=== PATIENT | female | born 1995 | race Caucasian/White ===

== ENCOUNTER 2019-03-14 09:20 | Emergency (ER) | payer BC ==
[2019-03-14] MEDS ORDERED: SODIUM CHLORIDE 0.9% 1,000 ML IV STA (09:41)
[2019-03-14] MEDS ORDERED: KETOROLAC 30 MG/ML 1 ML VIAL IVP STA (10:29)
--- NOTE | 2019-03-14 10:35 | ED ---
Abdominal Pain HPI - General Chief Complaint: Abdominal Pain Stated Complaint: back/flank pain Time Seen by Provider: 03/14/19 09:41 Source: patient, RN notes reviewed, old records reviewed Mode of arrival: ambulatory Limitations: no limitations - History of Present Illness Initial Comments: Patient is a 23-year-old female who presents emergency Department today with complaints of bilateral flank pain. 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 She had worsening pain last night and left her shift early. Patient reports that she has started with diffuse abdominal cramping and diarrhea symptoms on of last week. She reports that those symptoms seemed to resolve over the weekend but she has had a poor appetite. She states that she went to an urgent care on and at that time she had an abnormal urine specimen with bilirubin, ketones red blood cells. Patient states that she did not have any urinary symptoms at that time therefore is not placed on any antibiotics. They did complete a urine culture but this is still currently pending. Patient states that she has had no recorded fevers or chi lls. She states that she now is having worsening bilateral flank pain. She denies any vomiting. Denies any significant past medical history. Patient has been taken Motrin for the pain. - Related Data Home Medications Medication Instructions Recorded Confirmed Cholecalciferol [Vitamin D3 (25 1,000 unit PO DAILY 03/14/19 03/14/19 Mcg = 1000 Iu)] Ibuprofen [Motrin Ib] 400 mg PO Q6H PRN 03/14/19 03/14/19 Multivitamins, Thera [Multivitamin 1 tab PO DAILY 03/14/19 03/14/19 (formulary)] Norgestimate-Ethinyl Estradiol 1 tab PO HS 03/14/19 03/14/19 [Ortho Tri-Cyclen 28 Tablet] Vitamin C/Biotin [Hair, Skin and 1 tab PO DAILY 03/14/19 03/14/19 Nails] Previous Rx's Medication Instructions Recorded Ketorolac [Toradol] 10 mg PO Q6HR #15 tab 03/14/19 Nitrofurantoin Monohyd/M-Cryst 100 mg PO Q12HR #14 cap 03/14/19 [Macrobid] Allergies Allergy/AdvReac Type Severity Reaction Status Date / Time No Known Allergies Allergy Verified 03/14/19 09:50 Review of Systems ROS Statement: Those systems with pertinent positive or pertinent negative responses have been documented in the HPI. ROS Other: All systems not noted in ROS Statement are negative. Past Medical History Past Medical History: No Reported History History of Any Multi-Drug Resistant Organisms: None Reported Additional Past Surgical History / Comment(s): eye surgery Past Psychological History: No Psychological Hx Reported Smoking Status: Never smoker Past Alcohol Use History: None Reported Past Drug Use History: Unable to Obtain General Exam - General Exam Comments Initial Comments: This is a 23-year-old female. Alert and oriented 3. No significant distress. Limitations: no limitations General appearance: alert, in no apparent distress Head exam: Present: atraumatic, normocephalic, normal inspection Eye exam: Present: normal appearance, PERRL, EOMI. Absent: scleral icterus, conjunctival injection, periorbital swelling ENT exam: Present: normal exam, mucous membranes moist Neck exam: Present: normal inspection. Absent: tenderness, meningismus, lymphadenopathy Respiratory exam: Present: normal lung sounds bilaterally. Absent: respiratory distress, wheezes, rales, rhonchi, stridor Cardiovascular Exam: Present: regular rate, normal rhythm, normal heart sounds. Absent: systolic murmur, diastolic murmur, rubs, gallop, clicks GI/Abdominal exam: Present: soft, normal bowel sounds. Absent: distended, tenderness, guarding, rebound, rigid Back exam: Present: normal inspection Neurological exam: Present: alert, oriented X3, CN II-XII intact Psychiatric exam: Present: normal affect, normal mood Skin exam: Present: warm, dry, intact, normal color. Absent: rash Course Vital Signs 03/14/19 09:32 Temperature 98.7 F Pulse Rate 81 Respiratory 16 Rate Blood Pressure 135/86 O2 Sat by Pulse 99 Oximetry Medical Decision Making - Medical Decision Making is a well-appearing 23-year-old female presents emergency department today with few days of diarrhea, and diffuse abdominal pain, but the weekend. She states that she started to develop some bilateral flank pain. She is similar to care and had a abnormal UA at that time but was not started on antibiotics. This patient's blood work and vital signs are stable. Urinalysis shows some trace hematuria. They do related to possible history of kidney stones in the family and I discussed further evaluation of possible CT. They proceeded with CT and pelvis. His evidence of diverticulosis without diverticulitis. No signs of obstructing kidney stone. At this time we'll do a urine culture. I discussed putting the Patient on Macrobid is best worked well for her for previous UTIs in the past she does have some bacteria noted her urine. She denies any pelvic pain or vaginal discharge. I discussed the Patient follow-up problem with her primary care doctor. Discharge Patient with prescription for Toradol and Macrobid. QUESTIONS WERE ANSWERED. - Lab Data Result diagrams: 03/14/19 11:10 03/14/19 11:10 Lab Results 03/14/19 03/14/19 03/14/19 Range/Units 11:10 11:10 11:10 WBC 4.8 (3.8-10.6) k/uL RBC 4.37 (3.80-5.40) m/uL Hgb 13.4 (11.4-16.0) gm/dL Hct 39.3 (34.0-46.0) % MCV 90.0 (80.0-100.0) fL MCH 30.6 (25.0-35.0) pg MCHC 34.0 (31.0-37.0) g/dL RDW 12.5 (11.5-15.5) % Plt Count 258 (150-450) k/uL Neutrophils % 54 % Lymphocytes % 30 % Monocytes % 11 % Eosinophils % 1 % Basophils % 1 % Neutrophils # 2.6 (1.3-7.7) k/uL Lymphocytes # 1.4 (1.0-4.8) k/uL Monocytes # 0.5 (0-1.0) k/uL Eosinophils # 0.1 (0-0.7) k/uL Basophils # 0.0 (0-0.2) k/uL Sodium 140 (137-145) mmol/L Potassium 3.5 (3.5-5.1) mmol/L Chloride 99 (98-107) mmol/L Carbon Dioxide 26 (22-30) mmol/L Anion Gap 15 mmol/L BUN 9 (7-17) mg/dL Creatinine 0.76 (0.52-1.04) mg/dL Est GFR (CKD-EPI)AfAm >90 (>60 ml/min/1.73 sqM) Est GFR (CKD-EPI)NonAf >90 (>60 ml/min/1.73 sqM) Glucose 77 (74-99) mg/dL Calcium 9.3 (8.4-10.2) mg/dL Total Bilirubin 0.4 (0.2-1.3) mg/dL AST 27 (14-36) U/L ALT 29 (9-52) U/L Alkaline Phosphatase 61 (38-126) U/L Total Protein 7.4 (6.3-8.2) g/dL Albumin 4.2 (3.5-5.0) g/dL Amylase 55 (30-110) U/L Lipase 171 (23-300) U/L Urine Color Urine Appearance (Clear) Urine pH (5.0-8.0) Ur Specific Bryant (1.001-1.035) Urine Protein (Negative) Urine Glucose (UA) (Negative) Urine Ketones (Negative) Urine Blood (Negative) Urine Nitrite (Negative) Urine Bilirubin (Negative) Urine Urobilinogen (<2.0) mg/dL Ur Leukocyte Esterase (Negative) Urine RBC (0-5) /hpf Urine WBC (0-5) /hpf Ur Squamous Epith Cells (0-4) /hpf Urine Bacteria (None) /hpf Urine Mucus (None) /hpf Urine HCG, Qual Not Detected (Not Detectd) 03/14/19 Range/Units 11:10 WBC (3.8-10.6) k/uL RBC (3.80-5.40) m/uL Hgb (11.4-16.0) gm/dL Hct (34.0-46.0) % MCV (80.0-100.0) fL MCH (25.0-35.0) pg MCHC (31.0-37.0) g/dL RDW (11.5-15.5) % Plt Count (150-450) k/uL Neutrophils % % Lymphocytes % % Monocytes % % Eosinophils % % Basophils % % Neutrophils # (1.3-7.7) k/uL Lymphocytes # (1.0-4.8) k/uL Monocytes # (0-1.0) k/uL Eosinophils # (0-0.7) k/uL Basophils # (0-0.2) k/uL Sodium (137-145) mmol/L Potassium (3.5-5.1) mmol/L Chloride (98-107) mmol/L Carbon Dioxide (22-30) mmol/L Anion Gap mmol/L BUN (7-17) mg/dL Creatinine (0.52-1.04) mg/dL Est GFR (CKD-EPI)AfAm (>60 ml/min/1.73 sqM) Est GFR (CKD-EPI)NonAf (>60 ml/min/1.73 sqM) Glucose (74-99) mg/dL Calcium (8.4-10.2) mg/dL Total Bilirubin (0.2-1.3) mg/dL AST (14-36) U/L ALT (9-52) U/L Alkaline Phosphatase (38-126) U/L Total Protein (6.3-8.2) g/dL Albumin (3.5-5.0) g/dL Amylase (30-110) U/L Lipase (23-300) U/L Urine Color Light Yellow Urine Appearance Clear (Clear) Urine pH 5.5 (5.0-8.0) Ur Specific Bryant 1.006 (1.001-1.035) Urine Protein Negative (Negative) Urine Glucose (UA) Negative (Negative) Urine Ketones 2+ H (Negative) Urine Blood Trace H (Negative) Urine Nitrite Negative (Negative) Urine Bilirubin Negative (Negative) Urine Urobilinogen <2.0 (<2.0) mg/dL Ur Leukocyte Esterase Negative (Negative) Urine RBC <1 (0-5) /hpf Urine WBC 1 (0-5) /hpf Ur Squamous Epith Cells 1 (0-4) /hpf Urine Bacteria Rare H (None) /hpf Urine Mucus Rare H (None) /hpf Urine HCG, Qual (Not Detectd) Disposition Clinical Impression: Flank pain Disposition: HOME SELF-CARE Condition: Good Instructions (If sedation given, give patient instructions): Urinary Tract Infection in Women (ED) Additional Instructions: Follow Up with her primary care physician. Patient started to take antibiotics as prescribed. Take Motrin Tylenol for pain. Return to the emergency department if any alarming signs or symptoms occur. Prescriptions: Nitrofurantoin Monohyd/M-Cryst [Macrobid] 100 mg PO Q12HR #14 cap Ketorolac [Toradol] 10 mg PO Q6HR #15 tab Is patient prescribed a controlled substance at d/c from ED?: No Referrals: None,Stated [Primary Care Provider] - 1-2 days Rema Barlow MD [STAFF PHYSICIAN] - 1-2 days Time of Disposition: 13:30
[2019-03-14 11:31] LABS: Appearance,Urine Clear (Clear); Bacteria,Urine Rare /hpf; Bilirubin,Urine Negative (Negative); Blood,Urine Trace (Negative); Color,Urine Light Yellow; Glucose,Urine (UA) Negative (Negative); Ketones,Urine 2+ (Negative); Leukocyte Esterase,Urine Negative (Negative); Mucus,Urine Rare /hpf; Nitrite,Urine Negative (Negative); PH, Urine 5.5 (5.0-8.0); Protein,Urine Negative (Negative); RBC,Urine <1 /hpf (0-5); Specific Gravity,Urine 1.006 (1.001-1.035); Squamous Epithelial Cell,Urine 1 /hpf (0-4); Urobilinogen,Urine <2.0 mg/dL (<2.0); WBC,Urine 1 /hpf (0-5)
[2019-03-14 11:43] LABS: ALT 29 U/L (9-52); AST 27 U/L (14-36); African American GFR (CKD) >90 (>60 ml/min/1.73 sqM); Albumin 4.2 g/dL (3.5-5.0); Alkaline Phosphatase 61 U/L (38-126); Amylase 55 U/L (30-110); Anion Gap 15 mmol/L; Blood Urea Nitrogen 9 mg/dL (7-17); Calcium 9.3 mg/dL (8.4-10.2); Carbon Dioxide 26 mmol/L (22-30); Chloride 99 mmol/L (98-107); Glucose 77 mg/dL (74-99); Lipase 171 U/L (23-300); Potassium 3.5 mmol/L (3.5-5.1); Sodium 140 mmol/L (137-145); Total Bilirubin 0.4 mg/dL (0.2-1.3); Total Protein 7.4 g/dL (6.3-8.2)
[2019-03-14 11:52] LABS: Basophils % (A) 1 %; Eosinophils # (A) 0.1 k/uL (0-0.7); Eosinophils % (A) 1 %; HCT 39.3 % (34.0-46.0); HGB 13.4 gm/dL (11.4-16.0); Lymphocytes # (A) 1.4 k/uL (1.0-4.8); Lymphocytes % (A) 30 %; MCH 30.6 pg (25.0-35.0); Mean Platelet Volume 8.8; Monocytes # (A) 0.5 k/uL (0-1.0); Monocytes % (A) 11 %; Neutrophils # (A) 2.6 k/uL (1.3-7.7); Neutrophils % (A) 54 %; Platelet Count 258 k/uL (150-450); RBC 4.37 m/uL (3.80-5.40); RDW 12.5 % (11.5-15.5); WBC 4.8 k/uL (3.8-10.6)
--- NOTE | 2019-03-14 12:45 | CT ---
EXAMINATION TYPE: CT abdomen pelvis wo con DATE OF EXAM: 03/14/2019 COMPARISON: 09/16/2011 INDICATION: Bilat flank and Abdominal pain with hematuria DLP: 353.1 mGycm, Automated exposure control for dose reduction was used. CONTRAST: 0 mL of Isovue 300. Study performed without Oral Contrast TECHNIQUE: Axial images were obtained from above the diaphragm to the pubic rami in the axial plane a t 5 mm thick sections. Reconstructed images are reviewed on the computer in the coronal plane. FINDINGS: Limited CT sections are obtained the lung bases. The lung bases are clear. CT ABDOMEN: Liver: Normal Spleen: Normal Pancreas: Normal Adrenal glands: The adrenal glands are normal. Gallbladder: Normal Kidneys: No masses are evident. No hydronephrosis is present. No cysts are present. No renal stone s are evident. Aorta: Normal Inferior vena cava: Normal. CT PELVIS: Loops of bowel within the abdomen and pelvis are normal. Study is performed without oral contrast limiting bowel evaluation. Diverticulosis is suspected to the sigmoid colon. Appendix: Not identified. No suspicious inflammatory changes or dilated tubular structures are eviden t. Urinary bladder: Normal. Genitourinary structures: Uterus is unremarkable. Adnexal regions are normal. Minimal physiologic flu id may be within the right hemipelvis. Osseous structures: No suspicious lytic or sclerotic lesions. IMPRESSIONS: 1. Suggestion of diverticulosis without acute diverticulitis. 2. Noncontrast CT abdomen pelvis otherwise is unremarkable.
[2019-03-14] MEDS ORDERED: cefTRIAXone IN SWFI 1,000 MG/10 ML SYRINGE IVP STA (13:29)
[2019-03-14 14:14] VITALS: BP 113/72; PULSE 75; RESP 18; TEMP 97.5
== END 2019-03-14 14:15 | disposition home or self-care (01) ==
LOC: EC 09:20
DX: R10.9 Unspecified abdominal pain (principal); R19.7 Diarrhea, unspecified; K57.90 Diverticulosis of intestine, part unspecified, without perforation or abscess without bleeding; Z79.3 Long term (current) use of hormonal contraceptives; Z79.899 Other long term (current) drug therapy
CPT/HCPCS: 99285 ×2; 96374 ×2; 96375 ×2; 96361 ×2; 36415; 80053; 82150; 83690; 85025; 81001; 81025; 87086; 74176; J0696; J1885